=== PATIENT | female | born 1995 | race Two or more races ===

== ENCOUNTER 2017-07-13 08:26 | Inpatient (IN) | payer OTHER ==
[~2017-07-13 08:26] MED LIST: L&D EPIDURAL CASSETTE 100 ML EP
[2017-07-13] MEDS ORDERED: ONDANSETRON PF 4 MG/2 ML VIAL. IV (09:45)
[2017-07-13] MEDS ORDERED: fentaNYL PF VIAL 100 MCG/2 ML VIAL IV (09:45)
[2017-07-13] MEDS ORDERED: 0.9 % SODIUM CHLORIDE 10 ML DISP.SYRIN. IV ×2 (09:45→17:30)
[2017-07-13] MEDS ORDERED: LIDOCAINE 1% PF 30 ML VIAL. INJ (09:45)
[2017-07-13] MEDS ORDERED: OXYTOCIN 30 UNIT/500 ML PREMIX 500 ML IV (09:45)
[2017-07-13] MEDS ORDERED: CITRIC ACID/SODIUM CITRATE 30 ML SOLUTION. PO (09:45)
[2017-07-13] MEDS ORDERED: MAG HYDROX/ALUMINUM HYD/SIMETH 30 ML ORAL.SUSP PO ×2 (09:45→17:30)
[2017-07-13] MEDS ORDERED: TERBUTALINE 1 MG/ML VIAL. SQ (09:45)
[2017-07-13] MEDS ORDERED: BUTORPHANOL 2 MG/ML VIAL. IV ×2 (09:45)
[2017-07-13] MEDS ORDERED: L&D EPIDURAL SYRINGE 50 ML EP ×2 (10:00→11:20)
[2017-07-13] MEDS: IV RINGERS,LACTATED 1000ML 1,000 ML IV ×2 (10:15→10:16)
[2017-07-13 10:16] LABS: HEMOGLOBIN 9.3 g/dL (12.0-15.5); MEAN CORPUSCULAR HEMOGLOBIN 23 pg (25-35); MEAN CORPUSCULAR HGB CONC 31 g/dL (31-37); MEAN CORPUSCULAR VOLUME 73 fL (79-100); PLATELET COUNT 159 x10^3/uL (140-400); RED CELL DISTRIBUTION WIDTH 17.8 % (11.5-14.5); WHITE BLOOD COUNT 9.4 x10^3/uL (4.0-11.0)
[2017-07-13] MEDS ORDERED: BUPIVACAINE MPF 0.25% 30 ML VIAL. (11:20)
[2017-07-13] MEDS: OXYTOCIN 30 UNIT/500 ML PREMIX 500 ML IV (14:39)
[2017-07-13] MEDS: L&D EPIDURAL SYRINGE 50 ML EP (14:41)
[2017-07-13] MEDS ORDERED: PHENYLEPH/MINERAL OIL/PETROLAT RECTAL OINTMENT 28GM TUBE. RC (17:30)
[2017-07-13] MEDS ORDERED: BENZOCAINE 20% TOPICAL AEROSOL SPRAY 57GM CAN. TP (17:30)
[2017-07-13] MEDS ORDERED: MAGNESIUM HYDROXIDE 2,400 MG/30 ML ORAL.SUSP. PO (17:30)
[2017-07-13] MEDS ORDERED: SIMETHICONE 80 MG TAB.CHEW PO (17:30)
[2017-07-13] MEDS ORDERED: diphenhydrAMINE HCL 25 MG CAPSULE PO (17:30)
[2017-07-13] MEDS ORDERED: MMR per PROTOCOL. MC (17:30)
[2017-07-13] MEDS ORDERED: ZOLPIDEM 5 MG TABLET. PO (17:30)
[2017-07-13] MEDS ORDERED: HYDROCORTISONE 1% TOPICAL OINTMENT 30GM TUBE. TP (17:30)
[2017-07-13] MEDS ORDERED: ACETAMINOPHEN 325 MG TABLET. PO (17:30)
[2017-07-13] MEDS ORDERED: IBUPROFEN 800 MG TABLET. PO (17:30)
[2017-07-13] MEDS ORDERED: IV RINGERS,LACTATED 1000ML 1,000 ML IV (20:39)
[2017-07-14 00:14] LABS: RPR Non Reactive (Non Reactive)
[2017-07-14] MEDS ORDERED: FERROUS SULFATE 325 MG TABLET. PO (08:00)
[2017-07-14] MEDS: DOCUSATE SODIUM 100 MG CAPSULE. PO (11:21)
[2017-07-14] MEDS: DIPHTH,PERTUSS(ACELL),TET TOX 0.5 ML DISP.SYRIN. VAX IM (11:26)
== END 2017-07-15 15:30 | disposition home or self-care (01) | DRG 775 ==
LOC: 3 SO LND 08:26 → 3 NORTH 16:25
PROC: 10E0XZZ Delivery of Products of Conception, External Approach (ICD-10-PCS; principal; 2017-07-13)
DX: O80 Encounter for full-term uncomplicated delivery (principal); Z37.0 Single live birth; Z3A.00 Weeks of gestation of pregnancy not specified
CPT/HCPCS: 36415; 85027; 86593; 86850; 86900; 86901; 90715; J2590; J7120